=== PATIENT | male | born 1980 | race Caucasian/White ===

== ENCOUNTER 2018-09-24 11:30 | Emergency (ER) | payer SELFPAY ==
[~2018-09-24] VITALS: Ht 182.9 cm; Wt 65.2 kg
[~2018-09-24 11:30] MED LIST: OMEP20TA62 PO; ONDA4TAB7 PO; PROM25SU35 PR
[2018-09-24] MEDS ORDERED: KETOROLAC 30 MG/1 ML ONE (12:29)
[2018-09-24] MEDS ORDERED: HYDROmorphone 2 MG/ML, 1ML ONE (12:29)
[2018-09-24] MEDS ORDERED: ONDANSETRON ODT 4 MG ONE (12:29)
[2018-09-24] MEDS ORDERED: ONDANSETRON ODT 4 MG PO ONE (12:30)
[2018-09-24] MEDS ORDERED: KETOROLAC 30 MG/1 ML IM ONE (12:30)
[2018-09-24] MEDS ORDERED: HYDROmorphone 2 MG/ML, 1ML IM ONE (12:30)
[2018-09-24 14:03] VITALS: BP 179/108
== END 2018-09-24 14:05 | disposition home or self-care (01) ==
LOC: ED 13:43
DX: S29.012A Strain of muscle and tendon of back wall of thorax, initial encounter (principal); S23.3XXA Sprain of ligaments of thoracic spine, initial encounter; X58.XXXA Exposure to other specified factors, initial encounter; Y93.89 Activity, other specified; Y92.89 Other specified places as the place of occurrence of the external cause; Y99.8 Other external cause status
CPT/HCPCS: 71046; 72072; 72110; 96372; 99283; J1170; J1885; Q0162

== ENCOUNTER 2018-10-10 15:04 | Emergency (ER) | payer OTHER ==
[~2018-10-10] VITALS: Ht 182.9 cm; Wt 64.9 kg
[2018-10-10 15:19] VITALS: BP 145/80
== END 2018-10-10 15:48 ==
LOC: ED 15:42
DX: K02.9 Dental caries, unspecified (principal); K08.89 Other specified disorders of teeth and supporting structures; I10 Essential (primary) hypertension
CPT/HCPCS: 99283

== ENCOUNTER 2019-02-19 15:19 | Emergency (ER) | payer SELFPAY ==
[~2019-02-19] VITALS: Ht 182.9 cm; Wt 66.5 kg
[2019-02-19 15:24] VITALS: BP 136/79
--- NOTE | 2019-02-19 16:00 | NUR ---
removable wrist splint applied to left wrist by emt. cms intact post treatment
[2019-02-19] MEDS ORDERED: IBUPROFEN 600 MG TABLET ONE (16:29)
[2019-02-19] MEDS ORDERED: IBUPROFEN 200 MG TABLET PO ONE (16:30)
== END 2019-02-19 16:33 ==
LOC: ED 15:53
DX: G56.01 Carpal tunnel syndrome, right upper limb (principal)
CPT/HCPCS: 29125; 99283

== ENCOUNTER 2019-05-10 11:26 | Emergency (ER) | payer MEDICAID, OTHER ==
[~2019-05-10] VITALS: Ht 182.9 cm; Wt 64.5 kg
[2019-05-10 13:05] VITALS: BP 133/80
== END 2019-05-10 13:32 | disposition home or self-care (01) ==
LOC: ED 13:12
DX: R22.0 Localized swelling, mass and lump, head (principal); R07.0 Pain in throat; I10 Essential (primary) hypertension; N28.9 Disorder of kidney and ureter, unspecified; Z72.9 Problem related to lifestyle, unspecified; Z87.19 Personal history of other diseases of the digestive system; Z90.49 Acquired absence of other specified parts of digestive tract
CPT/HCPCS: 36415; 70491; 80048; 82040; 82150; 85025; 96374; 99284; J1885; Q9967; 96372

== ENCOUNTER 2019-05-26 00:43 | Emergency (ER) | payer OTHER ==
[~2019-05-26] VITALS: Ht 167.6 cm; Wt 64.0 kg
[2019-05-26 00:49] VITALS: BP 159/97
== END 2019-05-26 03:09 | disposition home or self-care (01) ==
LOC: ED 02:57
DX: S90.01XA Contusion of right ankle, initial encounter (principal); I10 Essential (primary) hypertension; N28.9 Disorder of kidney and ureter, unspecified; Z87.19 Personal history of other diseases of the digestive system; Z90.49 Acquired absence of other specified parts of digestive tract; W22.8XXA Striking against or struck by other objects, initial encounter; Y93.89 Activity, other specified; Y92.89 Other specified places as the place of occurrence of the external cause; Y99.8 Other external cause status
CPT/HCPCS: 99283

== ENCOUNTER 2019-09-21 10:05 | Emergency (ER) | payer MEDICAID, OTHER ==
[~2019-09-21] VITALS: Ht 182.9 cm; Wt 69.2 kg
[2019-09-21 10:09] VITALS: BP 173/115
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
== END 2019-09-21 10:57 | disposition home or self-care (01) ==
LOC: ED 10:46
DX: K02.9 Dental caries, unspecified (principal); I10 Essential (primary) hypertension; Z72.9 Problem related to lifestyle, unspecified; Z87.19 Personal history of other diseases of the digestive system; Z90.49 Acquired absence of other specified parts of digestive tract
CPT/HCPCS: 99282

== ENCOUNTER 2019-09-28 02:25 | Emergency (ER) | payer OTHER ==
[2019-09-28 03:44] VITALS: BP 134/94
[2019-09-28] MEDS ORDERED: IBUPROFEN 600 MG TABLET ONE (03:53)
--- NOTE | 2019-09-28 04:35 | NUR ---
Patient came to ER c/o right foot pain with blisters. Patient states his primary mode of transportation is walking and he walks from [place] to [email or web address] for work.
== END 2019-09-28 04:43 | disposition home or self-care (01) ==
LOC: ED 03:49
DX: T69.022A Immersion foot, left foot, initial encounter (principal); T69.021A Immersion foot, right foot, initial encounter; Z72.9 Problem related to lifestyle, unspecified; X31.XXXA Exposure to excessive natural cold, initial encounter
CPT/HCPCS: 99281; 99282

== ENCOUNTER 2019-10-24 02:18 | Emergency (ER) | payer MEDICAID ==
[~2019-10-24] VITALS: Ht 182.9 cm; Wt 68.0 kg
[2019-10-24 02:20] VITALS: BP 136/85
--- NOTE | 2019-10-24 02:27 | NUR ---
Pt to room from triage, ambulatory with steady gait.
--- NOTE | 2019-10-24 02:29 | NUR ---
Dr. Gonzalez at bedside to evaluate pt.
[2019-10-24] MEDS ORDERED: IBUPROFEN 600 MG TABLET ONE (02:38)
[2019-10-24] MEDS ORDERED: IBUPROFEN 600 MG TABLET PO ONE (03:00)
== END 2019-10-24 02:52 | disposition home or self-care (01) ==
LOC: ED 02:50
DX: G89.29 Other chronic pain (principal); M25.561 Pain in right knee; M25.562 Pain in left knee; I10 Essential (primary) hypertension; F17.200 Nicotine dependence, unspecified, uncomplicated; Z90.49 Acquired absence of other specified parts of digestive tract
CPT/HCPCS: 99282

== ENCOUNTER 2019-11-11 04:58 | Emergency (ER) | payer MEDICAID ==
[~2019-11-11] VITALS: Ht 182.9 cm; Wt 67.9 kg
[2019-11-11 05:02] VITALS: BP 156/105
--- NOTE | 2019-11-11 05:09 | NUR ---
PA AT BEDSIDE TO ASSESS PT.
[2019-11-11] MEDS ORDERED: HYDROcodone/APAP 5/325 TABLET PO ONE (05:30)
[2019-11-11] MEDS ORDERED: HYDROcodone/APAP 5/325 TABLET ONE (05:44)
== END 2019-11-11 05:54 | disposition home or self-care (01) ==
LOC: ED 05:10
DX: K08.89 Other specified disorders of teeth and supporting structures (principal)
CPT/HCPCS: 99283

== ENCOUNTER 2019-12-29 01:32 | Emergency (ER) | payer MEDICAID ==
[~2019-12-29] VITALS: Ht 188 cm; Wt 63.1 kg
[2019-12-29] MEDS ORDERED: SODIUM CHLORIDE FLUSH 10ML SYR IVF ONE (02:00)
[2019-12-29] MEDS ORDERED: ONDANSETRON 2MG/ML, 2ML IVPush ONE (02:00)
[2019-12-29] MEDS ORDERED: MORPHINE SULFATE 4 MG/ML, 1ML IVPush PRN (02:00)
[2019-12-29] MEDS ORDERED: ONDANSETRON 2MG/ML, 2ML ONE ×2 (02:02→02:26)
[2019-12-29] MEDS ORDERED: MORPHINE SULFATE 4 MG/ML, 1ML ONE ×2 (02:02→02:26)
[2019-12-29 02:25] LABS: BASOPHILS # (AUTO) 0.03 x10^3/uL (0-0.1); BASOPHILS % (AUTO) 0 % (0-1); EOSINOPHILS # (AUTO) 0.05 x10^3/uL (0-0.4); EOSINOPHILS % (AUTO) 1 % (1-7); LYMPHOCYTES # (AUTO) 1.61 x10^3/uL (1-3.4); LYMPHOCYTES % (AUTO) 19 % (22-44); MD NO; MEAN CORPUSCULAR HEMOGLOBIN 30.3 pg (27.5-34.5); MEAN CORPUSCULAR HGB CONC 34.2 g/dL (33.2-36.2); MEAN CORPUSCULAR VOLUME 88.8 fL (81-97); MEAN PLATELET VOLUME 7.6 fL (7.4-10.4); MONOCYTES # (AUTO) 1.14 x10^3/uL (0.2-0.8); MONOCYTES % (AUTO) 14 % (2-9); NEUTROPHILS # (AUTO) 5.62 x10^3/uL (1.8-6.8); NEUTROPHILS % (AUTO) 67 % (42-75); PLATELET COUNT 257 x10^3/uL (130-400); RED BLOOD COUNT 4.71 x10^6/uL (4.38-5.82); RED CELL DISTRIBUTION WIDTH 13.4 % (9.4-14.8)
--- NOTE | 2019-12-29 02:25 | NUR ---
iv site started, labs drawn. urine sample sent.
--- NOTE | 2019-12-29 02:32 | NUR ---
PT MEDICATED PER MAR
[2019-12-29 02:37] LABS: CULTURE INDICATED? YES; MICROSCOPIC INDICATED
[2019-12-29 02:38] LABS: ALANINE AMINOTRANSFERASE 78 U/L (12-78); ALBUMIN 3.2 g/dL (3.4-5.0); ANION GAP 7 mmol/L (5-15); CALCIUM 8.7 mg/dL (8.5-10.1); CHLORIDE 103 mmol/L (98-107); CREATININE 0.73 mg/dL (0.7-1.3)
[2019-12-29 02:40] LABS: ALKALINE PHOSPHATASE 137 U/L (45-117); BILIRUBIN,TOTAL 0.4 mg/dL (0.2-1.0); TOTAL PROTEIN 7.2 g/dL (6.4-8.2)
--- NOTE | 2019-12-29 03:07 | NUR ---
Patient resting in [place]. No complaints at this time. Patient states pain has improved to a 4/10.
[2019-12-29 04:29] VITALS: BP 129/75
--- NOTE | 2019-12-29 04:29 | NUR ---
Discharge instructions given. All questions and concerns addressed. Patient ambulatory with a steady gait. Belongings with patient.
== END 2019-12-29 04:31 | disposition home or self-care (01) ==
LOC: ED 03:00
DX: R11.2 Nausea with vomiting, unspecified (principal); R10.32 Left lower quadrant pain; R10.31 Right lower quadrant pain
CPT/HCPCS: 36415; 80053; 81001; 83690; 85025; 87086; 96374; 96375; 99284; J2270; J2405

== ENCOUNTER 2020-05-24 02:28 | Emergency (ER) | payer MEDICAID ==
[~2020-05-24] VITALS: Ht 182.9 cm; Wt 62.3 kg
[2020-05-24 02:30] VITALS: BP 163/106
[2020-05-24] MEDS ORDERED: HYDROcodone/APAP 5/325 TABLET ONE (02:51)
[2020-05-24] MEDS ORDERED: HYDROcodone/APAP 5/325 TABLET PO ONE (03:00)
== END 2020-05-24 03:08 | disposition home or self-care (01) ==
LOC: ED 03:02
DX: K04.7 Periapical abscess without sinus (principal); K02.9 Dental caries, unspecified; K08.89 Other specified disorders of teeth and supporting structures
CPT/HCPCS: 99283

== ENCOUNTER 2020-06-03 18:50 | Emergency (ER) | payer MEDICAID ==
[~2020-06-03] VITALS: Ht 182.9 cm; Wt 59.6 kg
[2020-06-03 18:54] VITALS: BP 132/75
--- NOTE | 2020-06-03 19:28 | NUR ---
PT UP TO BATHROOM FOR UA SAMPLE
[2020-06-03] MEDS ORDERED: LIDOCAINE-MPF 1%, 2ML ONE (19:54)
[2020-06-03] MEDS ORDERED: AZITHROMYCIN 250 MG TABLET ONE (19:54)
[2020-06-03] MEDS ORDERED: CEFTRIAXONE 250 MG ONE (19:54)
[2020-06-03] MEDS ORDERED: CEFTRIAXONE 250 MG IM ONE (20:00)
[2020-06-03] MEDS ORDERED: AZITHROMYCIN 500 MG TABLET PO ONE (20:00)
--- NOTE | 2020-06-03 20:23 | NUR ---
Patient given discharge instructions and they have confirmed that they understand the instructions. Patient ambulatory with steady gait.
== END 2020-06-03 20:30 ==
LOC: ED 20:24
DX: N34.1 Nonspecific urethritis (principal); I10 Essential (primary) hypertension; Z90.49 Acquired absence of other specified parts of digestive tract
CPT/HCPCS: 87491; 87591; 96372; 99283; J0696

== ENCOUNTER 2020-06-25 15:18 | Emergency (ER) | payer MEDICAID ==
[~2020-06-25] VITALS: Ht 182.9 cm; Wt 65.4 kg
[2020-06-25 15:22] VITALS: BP 125/93
[2020-06-25] MEDS ORDERED: ACETAMINOPHEN 500 MG TABLET ONE (15:37)
[2020-06-25] MEDS ORDERED: CLINDAMYCIN 300 MG CAPSULE ONE (15:37)
[2020-06-25] MEDS ORDERED: KETOROLAC 30 MG/1 ML ONE (15:37)
[2020-06-25] MEDS ORDERED: KETOROLAC 30 MG/1 ML IM ONE (16:00)
[2020-06-25] MEDS ORDERED: ACETAMINOPHEN 500 MG TABLET PO ONE (16:00)
[2020-06-25] MEDS ORDERED: CLINDAMYCIN 300 MG CAPSULE PO ONE (16:00)
== END 2020-06-25 15:57 | disposition home or self-care (01) ==
LOC: ED 15:43
DX: K02.9 Dental caries, unspecified (principal); K08.89 Other specified disorders of teeth and supporting structures; I10 Essential (primary) hypertension
CPT/HCPCS: 96372; 99283; J1885

== ENCOUNTER 2020-09-06 17:23 | Observation (INO) | payer MEDICAID ==
[~2020-09-06] VITALS: Ht 182.9 cm; Wt 58.0 kg
[~2020-09-06 17:23] MED LIST changes: +CEFAZOLIN 1,000 MG ONE; +DEXAMETHASONE 4 MG/ML, 1ML ONE; +KETOROLAC 30 MG/1 ML ONE; +ONDANSETRON 2MG/ML, 2ML ONE; +PROPOFOL 10 MG/ML, 20ML ONE; +ROCURONIUM 10MG/ML,5ML ONE; +SUCCINYLCHOLINE 20 MG/ML, 10ML ONE
[2020-09-06] MEDS ORDERED: ONDANSETRON 2MG/ML, 2ML ONE (17:57)
[2020-09-06] MEDS ORDERED: HYDROmorphone 1 MG/ML, 1ML INJ ONE (17:57)
[2020-09-06] MEDS ORDERED: HYDROmorphone 1 MG/ML, 1ML INJ IVPush PRN ×2 (18:00→21:00)
--- NOTE | 2020-09-06 18:03 | NUR ---
PT TO RM 4 FROM 43. PLACED ON GURNEY IN [place]IGHT [place] PER ERMD. PT HOLDING R GROIN TO KEEP HERNIA IN PLACE. PIV INITIATED, PT MEDICATED PER MAR
[2020-09-06 18:20] LABS: BASOPHILS % (AUTO) 1 % (0-1); EOSINOPHILS % (AUTO) 0 % (1-7); LYMPHOCYTES % (AUTO) 26 % (22-44); MEAN CORPUSCULAR HEMOGLOBIN 31.2 pg (27.5-34.5); MEAN CORPUSCULAR HGB CONC 34.1 g/dL (33.2-36.2); MEAN PLATELET VOLUME 8.4 fL (7.4-10.4); MONOCYTES % (AUTO) 7 % (2-9); NEUTROPHILS % (AUTO) 66 % (42-75); PLATELET COUNT 201 x10^3/uL (130-400); RED BLOOD COUNT 4.38 x10^6/uL (4.38-5.82)
[2020-09-06 18:27] LABS: ALBUMIN 3.8 g/dL (3.4-5.0); ANION GAP 4 mmol/L (5-15); CALCIUM 8.5 mg/dL (8.5-10.1); CHLORIDE 111 mmol/L (98-107); CREATININE 0.78 mg/dL (0.7-1.3)
[2020-09-06] MEDS ORDERED: ONDANSETRON 2MG/ML, 2ML IVPush ONE (18:30)
[2020-09-06] MEDS ORDERED: SODIUM CHLORIDE FLUSH 10ML SYR IVF ONE (18:30)
[2020-09-06] MEDS ORDERED: SODIUM CHLORIDE 0.9% 1,000ML IVBOLUS ONE (18:30)
[2020-09-06 18:37] LABS: MD NO
--- NOTE | 2020-09-06 18:41 | NUR ---
REPORT TO OR
[2020-09-06] MEDS ORDERED: EPINEPHRINE 1 MG/ML, 1ML ONE (18:48)
[2020-09-06] MEDS ORDERED: BUPIVACAINE/PF 0.5% ONE (18:48)
--- NOTE | 2020-09-06 19:04 | NUR ---
URINE SENT, PT AWAITIN COVID RESULTS FOR OR
[2020-09-06] MEDS ORDERED: PROPOFOL 50 ML ONE (19:19)
[2020-09-06] MEDS ORDERED: FENTANYL PF 250 MCG/5ML ONE (19:20)
[2020-09-06 19:28] LABS: AMPHETAMINE SCREEN, URINE Positive (Negative); BARBITURATE SCREEN, URINE Negative (Negative); BENZODIAZEPINE SCREEN, URINE Negative (Negative); CANNABINOID SCREEN, URINE Positive (Negative); COCAINE SCREEN, URINE Negative (Negative); METHADONE SCREEN, URINE Positive (Negative); OPIATE SCREEN, URINE Negative (Negative)
--- NOTE | 2020-09-06 19:49 | NUR ---
OR TECH HERE FOR RUCHI, PT TO SX
[2020-09-06] MEDS ORDERED: MIDAZOLAM 1 MG/ML, 2ML ONE (19:50)
[2020-09-06] MEDS ORDERED: FENTANYL PF 100 MCG/2ML IV PRN (21:00)
[2020-09-06] MEDS ORDERED: DIPHENHYDRAMINE 50 MG/ML, 1ML IVPush PRN (21:00)
[2020-09-06] MEDS ORDERED: PROMETHAZINE 25 MG/ML, 1ML IVPush PRN (21:00)
[2020-09-06] MEDS ORDERED: DIAZEPAM 5 MG/ML, 2ML IVPush PRN (21:00)
[2020-09-06] MEDS ORDERED: EPHEDRINE 50 MG/ML, 1ML IVPush PRN (21:00)
[2020-09-06] MEDS ORDERED: LABETALOL 5MG/ML, 20ML IV PRN (21:00)
[2020-09-06] MEDS ORDERED: EPHEDRINE 50 MG/ML, 1ML IM PRN (21:00)
[2020-09-06] MEDS ORDERED: OXYcodone 5 MG/5 ML ORAL.SOL UDC PO PRN (21:00)
[2020-09-06] MEDS ORDERED: ONDANSETRON 2MG/ML, 2ML IVPush PRN (21:00)
[2020-09-06] MEDS ORDERED: MEPERIDINE/PF 25MG/0.5ML IVPush PRN (21:00)
[2020-09-06] MEDS ORDERED: HYDROmorphone 2 MG/ML, 1ML IV PRN (22:30)
[2020-09-06] MEDS ORDERED: ONDANSETRON 2MG/ML, 2ML IV PRN (22:30)
[2020-09-06] MEDS: LACTATED RINGERS 1,000 ML IV SCH (22:43)
[2020-09-06 22:57] VITALS: BP 157/84
[2020-09-06 23:46] VITALS: BP 159/93
[2020-09-07] MEDS: MORPHINE SULFATE 4 MG/ML, 1ML IVPush PRN ×3 (00:39→07:47)
[2020-09-07] MEDS ORDERED: TRAM50TA2 PO (02:17)
[2020-09-07 03:47] VITALS: BP 131/81
[2020-09-07 06:42] VITALS: BP 167/97
[2020-09-07] MEDS: LACTATED RINGERS 1,000 ML IV SCH (08:30)
[2020-09-07 13:19] VITALS: BP 168/93
== END 2020-09-07 13:27 | disposition home or self-care (01) ==
LOC: OR 18:51 → EDIP 18:52 → INTOOBSV 18:52 → 4NE 21:52
PROVIDERS: ADMIT Surgery; ATTEND Surgery
DX: K40.30 Unilateral inguinal hernia, with obstruction, without gangrene, not specified as recurrent (principal); Z20.828 Contact with and (suspected) exposure to other viral communicable diseases; J44.9 Chronic obstructive pulmonary disease, unspecified; K85.10 Biliary acute pancreatitis without necrosis or infection; E89.2 Postprocedural hypoparathyroidism; I10 Essential (primary) hypertension; F15.10 Other stimulant abuse, uncomplicated; F12.10 Cannabis abuse, uncomplicated; F11.10 Opioid abuse, uncomplicated; F17.200 Nicotine dependence, unspecified, uncomplicated; Z90.49 Acquired absence of other specified parts of digestive tract; Z79.899 Other long term (current) drug therapy
CPT/HCPCS: 36415; 49507; 74021; 80048; 80307; 82040; 85025; 87635; 96361; 96374; 96375; 96376; 99284; G0378; J0171; J0330; J0690; J1100; J1170; J1885; J2250; J2270; J2405; J2704; J3010; J7030; J7120; S0020

== ENCOUNTER 2020-12-21 22:39 | Emergency (ER) | payer MEDICAID ==
[~2020-12-21] VITALS: Ht 182.9 cm; Wt 69.3 kg
[~2020-12-21 22:39] MED LIST changes: -CEFAZOLIN 1,000 MG ONE; -DEXAMETHASONE 4 MG/ML, 1ML ONE; -KETOROLAC 30 MG/1 ML ONE; -ONDANSETRON 2MG/ML, 2ML ONE; -PROPOFOL 10 MG/ML, 20ML ONE; -ROCURONIUM 10MG/ML,5ML ONE; -SUCCINYLCHOLINE 20 MG/ML, 10ML ONE; +TRAM50TA2 PO
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
[2020-12-21 23:33] VITALS: BP 130/86
--- NOTE | 2020-12-21 23:37 | NUR ---
Pt agrees with and understands discharge plan and instructions.
== END 2020-12-21 23:46 | disposition home or self-care (01) ==
LOC: ED 23:41
DX: S20.219A Contusion of unspecified front wall of thorax, initial encounter (principal); R07.89 Other chest pain; F17.200 Nicotine dependence, unspecified, uncomplicated; Z90.49 Acquired absence of other specified parts of digestive tract; X58.XXXA Exposure to other specified factors, initial encounter; Y93.89 Activity, other specified; Y92.89 Other specified places as the place of occurrence of the external cause; Y99.8 Other external cause status
CPT/HCPCS: 71045; 99283

== ENCOUNTER 2021-04-11 09:47 | Emergency (ER) | payer MEDICAID ==
[~2021-04-11] VITALS: Ht 175.3 cm; Wt 95.0 kg
--- NOTE | 2021-04-11 09:55 | NUR ---
NAYA FROM [facility] WHERE PT HAD C/O LBP WITH NO TRAUMA AND N/V. PT REQUESTING PAIN MEDICATION BEFORE FALLING ASLEEP ON GURENY DURING INTINAL ASSESSMENT. PT ROUSABLE HOWEVER VERY DROWSEY. PT ATTACHED TO MONITORS. VSS. NADN. AWAITING ORDERS.
[2021-04-11] MEDS ORDERED: KETOROLAC 30 MG/1 ML ONE (10:26)
[2021-04-11] MEDS ORDERED: ONDANSETRON 2MG/ML, 2ML ONE (10:27)
[2021-04-11] MEDS ORDERED: HYDROmorphone 1 MG/ML, 1ML INJ ONE (10:27)
[2021-04-11] MEDS ORDERED: ONDANSETRON 2MG/ML, 2ML IVPush ONE (10:30)
[2021-04-11] MEDS ORDERED: HYDROmorphone 1 MG/ML, 1ML INJ IV ONE (10:30)
[2021-04-11] MEDS ORDERED: KETOROLAC 30 MG/1 ML IVPush ONE (10:30)
[2021-04-11 10:51] LABS: ALBUMIN 4.3 g/dL (3.4-5.0); ANION GAP 9 mmol/L (5-15); BASOPHILS % (AUTO) 0 % (0-1); CALCIUM 9.5 mg/dL (8.5-10.1); CHLORIDE 107 mmol/L (98-107); EOSINOPHILS % (AUTO) 0 % (1-7); LYMPHOCYTES % (AUTO) 14 % (22-44); MEAN CORPUSCULAR HEMOGLOBIN 30.6 pg (27.5-34.5); MEAN CORPUSCULAR HGB CONC 35.1 g/dL (33.2-36.2); MEAN PLATELET VOLUME 8.9 fL (7.4-10.4); MONOCYTES % (AUTO) 8 % (2-9); NEUTROPHILS % (AUTO) 79 % (42-75); PLATELET COUNT 218 x10^3/uL (130-400); RED CELL DISTRIBUTION WIDTH 13.2 % (9.4-14.8)
[2021-04-11 10:55] LABS: ALANINE AMINOTRANSFERASE 39 U/L (12-78); ALKALINE PHOSPHATASE 144 U/L (45-117); BILIRUBIN,TOTAL 0.5 mg/dL (0.2-1.0); C-REACTIVE PROTEIN, QUANT 0.14 mg/dL (0.02-0.49); CREATININE 1.36 mg/dL (0.7-1.3); TOTAL PROTEIN 8.5 g/dL (6.4-8.2)
[2021-04-11] MEDS ORDERED: SODIUM CHLORIDE 0.9% 1,000ML IVBOLUS ONE (11:00)
[2021-04-11 12:21] LABS: MICROSCOPIC INDICATED
--- NOTE | 2021-04-11 12:26 | NUR ---
PT TO MRI. AMY. SAMANTHA.
--- NOTE | 2021-04-11 13:10 | NUR ---
PT IN MRI.
--- NOTE | 2021-04-11 13:58 | NUR ---
PT BACK FROM MRI. AMY SINGH.
[2021-04-11] MEDS ORDERED: GADOTERATE 10 MMOL/20ML SYR ONE (14:02)
--- NOTE | 2021-04-11 14:24 | NUR ---
BREAK RN: PT UPRIGHT ON GURNEY WITH EYES CLOSED, RESPONDS APPROP TO VERBAL STIMULI, NAD, NO NEEDS AT THIS TIME, REG AT BS, CALL LIGHT WITHIN REACH.
[2021-04-11 14:55] VITALS: BP 105/77
--- NOTE | 2021-04-11 16:17 | NUR ---
Patient given discharge instructions and they have confirmed that they understand the instructions. Patient ambulatory with steady gait. NAD, all questions answered appropriately, denies additional needs at this time. No personal belongings left in room after discharge.
== END 2021-04-11 16:17 | disposition home or self-care (01) ==
LOC: ED 13:35
DX: M51.26 Other intervertebral disc displacement, lumbar region (principal); R07.9 Chest pain, unspecified; I10 Essential (primary) hypertension; F17.200 Nicotine dependence, unspecified, uncomplicated
CPT/HCPCS: 36415; 71045; 72157; 72158; 80053; 81001; 83605; 85025; 86140; 96361; 96374; 96375; 99285; A9575; J1170; J1885; J2405; J7030

== ENCOUNTER 2021-05-21 09:25 | Emergency (ER) | payer MEDICAID, OTHER ==
[~2021-05-21] VITALS: Ht 182.9 cm; Wt 67.3 kg
--- NOTE | 2021-05-21 09:32 | NUR ---
EKG DONE IMMEDIATELY. PT ARRIVES TO ED A&OX4, C/O ABD & BACK PAIN. OFFICER FROM [facility] AT .
--- NOTE | 2021-05-21 09:42 | NUR ---
ERP WAS IN TO SEE PT.
[2021-05-21] MEDS ORDERED: DIPHENHYDRAMINE 50 MG/ML, 1ML ONE (09:57)
[2021-05-21] MEDS ORDERED: METOCLOPRAMIDE 5 MG/ML, 2ML ONE (09:57)
[2021-05-21] MEDS ORDERED: MORPHINE SULFATE 4 MG/ML, 1ML ONE (09:57)
[2021-05-21] MEDS ORDERED: METOCLOPRAMIDE 5 MG/ML, 2ML IVPush ONE (10:00)
[2021-05-21] MEDS ORDERED: SODIUM CHLORIDE FLUSH 10ML SYR IVF ONE (10:00)
[2021-05-21] MEDS ORDERED: SODIUM CHLORIDE 0.9% 1,000ML IVBOLUS ONE (10:00)
[2021-05-21] MEDS ORDERED: DIPHENHYDRAMINE 50 MG/ML, 1ML IVPush ONE (10:00)
[2021-05-21] MEDS ORDERED: MORPHINE SULFATE 4 MG/ML, 1ML IVPush PRN (10:00)
[2021-05-21 10:19] LABS: BASOPHILS % (AUTO) 0 % (0-1); EOSINOPHILS % (AUTO) 0 % (1-7); LYMPHOCYTES % (AUTO) 17 % (22-44); MEAN CORPUSCULAR HEMOGLOBIN 30.6 pg (27.5-34.5); MEAN CORPUSCULAR HGB CONC 34.6 g/dL (33.2-36.2); MEAN PLATELET VOLUME 8.9 fL (7.4-10.4); MONOCYTES % (AUTO) 5 % (2-9); NEUTROPHILS % (AUTO) 78 % (42-75); PLATELET COUNT 194 x10^3/uL (130-400); RED BLOOD COUNT 5.04 x10^6/uL (4.38-5.82); RED CELL DISTRIBUTION WIDTH 13.9 % (9.4-14.8)
[2021-05-21 10:23] LABS: ALBUMIN 3.9 g/dL (3.4-5.0); ANION GAP 8 mmol/L (5-15); CALCIUM 8.9 mg/dL (8.5-10.1); CHLORIDE 100 mmol/L (98-107)
--- NOTE | 2021-05-21 10:23 | NUR ---
PT RESTING AFTER MEDS, AWAKENS EASILY. IV BOLUS INFUSING. NO SIGNIFICANT CHANGE IN VS.
[2021-05-21 10:26] LABS: ALANINE AMINOTRANSFERASE 133 U/L (12-78); ALKALINE PHOSPHATASE 169 U/L (45-117); BILIRUBIN,TOTAL 0.7 mg/dL (0.2-1.0); CREATININE 0.69 mg/dL (0.7-1.3); TOTAL PROTEIN 7.8 g/dL (6.4-8.2)
[2021-05-21] MEDS ORDERED: METH10TA2 PO (10:33)
[2021-05-21] MEDS ORDERED: LOPE2CAP PO (10:33)
[2021-05-21] MEDS ORDERED: CALC500T29 PO ×2 (10:33)
[2021-05-21] MEDS ORDERED: DICY20TA4 PO (10:33)
--- NOTE | 2021-05-21 10:57 | NUR ---
ERP WAS IN FOR RECHECK.
[2021-05-21] MEDS ORDERED: hydrALAzine 20 MG/ML, 1ML ONE (11:09)
--- NOTE | 2021-05-21 11:15 | NUR ---
PT [place] VOIDED IN URINAL. MEDICATED WITH HYDRALAZINE PER ORDERS FOR CONTINUED HIGH BP. C/O ABD PAIN "COMING BACK" 04/27 NOW.
[2021-05-21 12:00] VITALS: BP 176/98
[2021-05-21] MEDS ORDERED: hydrALAzine 20 MG/ML, 1ML IV ONE (12:00)
[2021-05-21] MEDS ORDERED: METHADONE 40 MG TABLET.SOL PO ONE (12:00)
--- NOTE | 2021-05-21 12:00 | NUR ---
PT ABLE TO DRINK SOME WATER. IV BOLUS INFUSED. MEDICATED WITH METHADONE PER ORDERS. UNDERSTANDS PLAN FOR DISCHARGE.
--- NOTE | 2021-05-21 12:18 | NUR ---
ERP AWARE OF PT'S BP, OKAY TO DISCHARGE WITH RX FOR BP MED. D/C INSTRUCTIONS, MEDS & F/U APPT RV'WD WITH PT AND INSTRUCTIONS FOR RESUMING NORMAL METHADONE DOSE HIGHLIGHTED AND RV'WD WITH OFFICER FROM [facility]-TERM. PT ASSISTED OUT OF ED VIA WC AND TAKEN BACK TO [facility] WITH OFFICERS.
== END 2021-05-21 12:18 ==
LOC: ED 09:57
DX: F19.20 Other psychoactive substance dependence, uncomplicated (principal); R00.1 Bradycardia, unspecified; I10 Essential (primary) hypertension; F11.23 Opioid dependence with withdrawal; F17.200 Nicotine dependence, unspecified, uncomplicated; Z90.49 Acquired absence of other specified parts of digestive tract
CPT/HCPCS: 36415; 80053; 83690; 85025; 93005; 96361; 96374; 96375; 99285; J0360; J1200; J2270; J2765; J7030